=== PATIENT | female | born 1945 | race Caucasian/White ===

== ENCOUNTER 2017-10-02 20:21 | Inpatient (IN) | payer OTHER, MEDICARE ==
[~2017-10-02] VITALS: Ht 157.5 cm; Wt 85.2 kg
[2017-10-02 20:59] LABS: BASOPHILS % (AUTO) 0 % (0-1); EOSINOPHILS # (AUTO) 0.01 x10^3/uL (0-0.4); EOSINOPHILS % (AUTO) 0 % (1-7); LYMPHOCYTES # (AUTO) 0.58 x10^3/uL (1-3.4); LYMPHOCYTES % (AUTO) 7 % (22-44); MD NO; MEAN CORPUSCULAR HEMOGLOBIN 31.1 pg (27.0-34.8); MEAN CORPUSCULAR HGB CONC 33.8 g/dL (32.4-35.8); MEAN PLATELET VOLUME 8.1 fL (7.4-10.4); MONOCYTES # (AUTO) 0.59 x10^3/uL (0.2-0.8); MONOCYTES % (AUTO) 7 % (2-9); NEUTROPHILS # (AUTO) 7.41 x10^3/uL (1.8-6.8); NEUTROPHILS % (AUTO) 86 % (42-75); PLATELET COUNT 259 x10^3/uL (130-400); RED BLOOD COUNT 4.52 x10^6/uL (3.82-5.3); RED CELL DISTRIBUTION WIDTH 14.6 % (9.6-15.2)
[2017-10-02] MEDS ORDERED: IBUPROFEN 200 MG TABLET PO ONE (21:00)
[2017-10-02] MEDS ORDERED: HYDROcodone/APAP 5/325 TABLET PO ONE (21:00)
[2017-10-02] MEDS ORDERED: ONDANSETRON ODT 4 MG PO ONE (21:00)
[2017-10-02] MEDS ORDERED: HYDROcodone/APAP 5/325 TABLET ONE (21:04)
[2017-10-02] MEDS ORDERED: ONDANSETRON ODT 4 MG ONE (21:04)
[2017-10-02] MEDS ORDERED: IBUPROFEN 200 MG TABLET ONE (21:04)
[2017-10-02 21:11] LABS: ALANINE AMINOTRANSFERASE 29 U/L (12-78); ALBUMIN 3.7 g/dL (3.4-5.0); ANION GAP 8 mmol/L (5-15); CALCIUM 8.9 mg/dL (8.5-10.1); CHLORIDE 107 mmol/L (98-107); CREATININE 0.88 mg/dL (0.55-1.02)
[2017-10-02 21:13] LABS: ALKALINE PHOSPHATASE 65 U/L (45-117); BILIRUBIN,TOTAL 0.8 mg/dL (0.2-1.0); TOTAL PROTEIN 8.1 g/dL (6.4-8.2)
[2017-10-02 21:14] LABS: RAPID INFLUENZA A POSITIVE (Negative); RAPID INFLUENZA B Negative (Negative)
[2017-10-02] MEDS ORDERED: OSELTAMIVIR 75 MG CAPSULE PO ONE (21:30)
[2017-10-02] MEDS ORDERED: SODIUM CHLORIDE 0.9% 1,000ML IVBOLUS ONE (21:30)
[2017-10-02] MEDS ORDERED: MORPHINE SULFATE 4 MG/ML, 1ML IVPush PRN (21:30)
[2017-10-02] MEDS ORDERED: MORPHINE SULFATE 4 MG/ML, 1ML ONE (22:08)
[2017-10-02 22:21] LABS: MICROSCOPIC INDICATED
[2017-10-02] MEDS ORDERED: GUAIFENESIN/DM 200-20MG, 10ML UDC PO PRN (22:30)
[2017-10-02] MEDS ORDERED: ENALAPRILAT 1.25 MG/ML, 2ML IVPush PRN (22:30)
[2017-10-02] MEDS ORDERED: DIPHENHYDRAMINE 25 MG CAPSULE PO PRN (22:30)
[2017-10-02] MEDS ORDERED: hydrALAzine 20 MG/ML, 1ML IVPush PRN (22:30)
[2017-10-02] MEDS ORDERED: DOCUSATE 100 MG CAPSULE PO PRN (22:30)
[2017-10-02 22:40] LABS: CULTURE INDICATED? YES
[2017-10-02] MEDS: ENOXAPARIN 40 MG/0.4 ML SQ SCH (23:10)
[2017-10-03 04:02] VITALS: BP 113/62
[2017-10-03] MEDS: ACETAMINOPHEN 325 MG TABLET PO PRN ×4 (05:12→20:47)
[2017-10-03] MEDS ORDERED: PHENOL THROAT SPRAY BOTTLE MM PRN (08:30)
[2017-10-03] MEDS: IBUPROFEN 200 MG TABLET PO PRN ×2 (08:39→16:25)
[2017-10-03 08:40] VITALS: BP 115/62
[2017-10-03] MEDS ORDERED: OSELTAMIVIR 75 MG CAPSULE PO ONE (09:00)
[2017-10-03] MEDS: ONDANSETRON ODT 4 MG PO PRN (16:31)
[2017-10-03 16:45] VITALS: BP 129/68
[2017-10-03] MEDS: SODIUM CHLORIDE 0.9% 1,000 ML IV ONE ×2 (18:02→18:05)
[2017-10-03 20:24] VITALS: BP 123/64
[2017-10-03] MEDS: ENOXAPARIN 40 MG/0.4 ML SQ SCH (23:03)
[2017-10-04 03:05] VITALS: BP 130/65
[2017-10-04] MEDS: ACETAMINOPHEN 325 MG TABLET PO PRN ×3 (03:09→21:42)
[2017-10-04 05:30] LABS: CHLORIDE 110 mmol/L (98-107)
[2017-10-04 05:32] LABS: BASOPHILS # (AUTO) 0.02 x10^3/uL (0-0.1); BASOPHILS % (AUTO) 1 % (0-1); EOSINOPHILS # (AUTO) 0.02 x10^3/uL (0-0.4); EOSINOPHILS % (AUTO) 1 % (1-7); LYMPHOCYTES # (AUTO) 1.15 x10^3/uL (1-3.4); LYMPHOCYTES % (AUTO) 27 % (22-44); MD NO; MEAN CORPUSCULAR HEMOGLOBIN 30.8 pg (27.0-34.8); MEAN CORPUSCULAR HGB CONC 33.6 g/dL (32.4-35.8); MEAN CORPUSCULAR VOLUME 91.9 fL (80-100); MEAN PLATELET VOLUME 8.4 fL (7.4-10.4); MONOCYTES # (AUTO) 0.59 x10^3/uL (0.2-0.8); MONOCYTES % (AUTO) 14 % (2-9); NEUTROPHILS # (AUTO) 2.49 x10^3/uL (1.8-6.8); NEUTROPHILS % (AUTO) 58 % (42-75); PLATELET COUNT 179 x10^3/uL (130-400); RED BLOOD COUNT 3.81 x10^6/uL (3.82-5.3); RED CELL DISTRIBUTION WIDTH 14.5 % (9.6-15.2)
[2017-10-04 05:35] LABS: ANION GAP 6 mmol/L (5-15); CALCIUM 7.7 mg/dL (8.5-10.1); CREATININE 0.68 mg/dL (0.55-1.02)
[2017-10-04 10:07] VITALS: BP 121/78
[2017-10-04 12:33] VITALS: BP 129/74
[2017-10-04 20:45] VITALS: BP 132/72
[2017-10-04] MEDS: ONDANSETRON ODT 4 MG PO PRN (21:39)
[2017-10-04] MEDS: ENOXAPARIN 40 MG/0.4 ML SQ SCH (22:23)
[2017-10-05 03:06] VITALS: BP 121/71
[2017-10-05 07:44] VITALS: BP 115/71
[2017-10-05] MEDS ORDERED: ONDA4TAB13 PO (08:49)
[2017-10-05] MEDS ORDERED: GUAI5SYR PO (08:49)
[2017-10-05 09:53] VITALS: BP 150/84
== END 2017-10-05 11:00 | disposition home or self-care (01) | DRG 193 ==
LOC: ED 21:28 → EDIP 21:29 → ED 21:52 → 4NOR 22:34
PROVIDERS: ADMIT Surgery; ATTEND Surgery
DX: J10.1 Influenza due to other identified influenza virus with other respiratory manifestations (principal); J96.01 Acute respiratory failure with hypoxia; E66.9 Obesity, unspecified; R03.0 Elevated blood-pressure reading, without diagnosis of hypertension; J20.8 Acute bronchitis due to other specified organisms; Z68.34 Body mass index [BMI] 34.0-34.9, adult; Z88.2 Allergy status to sulfonamides; Z82.3 Family history of stroke; Z82.49 Family history of ischemic heart disease and other diseases of the circulatory system; Z87.891 Personal history of nicotine dependence; Z90.49 Acquired absence of other specified parts of digestive tract
CPT/HCPCS: 36415; 71045; 80048; 80053; 81001; 83690; 85025; 87086; 87400; 93005; 96374; 96376; J1650; Q0162; J7030; Q0163

== ENCOUNTER → 2017-12-28 | Outpatient (CLI) | payer OTHER, MEDICARE ==
[~2017-12-28] MED LIST: GUAI5SYR PO; ONDA4TAB13 PO
== END | disposition home or self-care (01) ==
LOC: CFH 14:10
PROVIDERS: ATTEND Family Medicine
DX: N64.4 Mastodynia (principal); M79.622 Pain in left upper arm
CPT/HCPCS: 76642; 77066

== ENCOUNTER 2019-04-23 10:38 | Outpatient (CLI) | payer OTHER, MEDICARE | END 2019-04-23 23:59 | disposition home or self-care (01) | LOC: CFH 10:38 | PROVIDERS: ATTEND Family Medicine | DX: Z12.31 Encounter for screening mammogram for malignant neoplasm of breast (principal) | CPT/HCPCS: 77063; 77067 ==

== ENCOUNTER 2021-06-04 08:15 | Outpatient (CLI) | payer OTHER, MEDICARE ==
[2021-06-04 08:42] LABS: ALANINE AMINOTRANSFERASE 26 U/L (12-78); ALBUMIN 3.6 g/dL (3.4-5.0); ANION GAP 5 mmol/L (5-15); CHLORIDE 108 mmol/L (98-107); CHOLESTEROL, TOTAL 264 mg/dL (140-239); CREATININE 0.87 mg/dL (0.55-1.02)
[2021-06-04 08:53] LABS: ALKALINE PHOSPHATASE 67 U/L (45-117); BILIRUBIN,TOTAL 0.7 mg/dL (0.2-1.0); CHOL/HDL RATIO 4.3; HDL CHOL % 23 % (28-40); HDL CHOLESTEROL (DIRECT) 61 mg/dL (40-60); LDL CHOLESTEROL,CALCULATED 174 mg/dL (54-169); LDL/HDL RATIO 2.9 (0.5-3.0); TOTAL PROTEIN 7.6 g/dL (6.4-8.2); TRIGLYCERIDES 147 mg/dL (50-200); VLDL CHOLESTEROL 29 mg/dL (0-25)
== END 2021-06-04 23:59 | disposition home or self-care (01) ==
LOC: LAB 08:15
PROVIDERS: ATTEND Internal Medicine
DX: Z13.220 Encounter for screening for lipoid disorders (principal); Z13.1 Encounter for screening for diabetes mellitus; M81.0 Age-related osteoporosis without current pathological fracture; R03.0 Elevated blood-pressure reading, without diagnosis of hypertension
CPT/HCPCS: 36415; 80053; 80061; 82306; 84443